=== PATIENT | female | born 1930 | race Caucasian/White ===

== ENCOUNTER 2018-08-27 14:01 | Inpatient (IN) | payer MEDICARE, BC ==
[~2018-08-27] VITALS: Ht 160 cm; Wt 62.2 kg
--- NOTE | 2018-08-27 14:19 | NUR ---
BIB BY [facility] FOR SOB/BILATERAL LEGS SWELLING (ACUTE ON CHRONIC) ON ARRIVAL REQUIRING 4L (HOME 2L), LEGS 4+, WET SOUNDING LUNGS AFEBRILE FSBS 90, HR 82 FAMILY REPORTS SHE HAS NOT BEEN TAKING HER LASIX
[2018-08-27] MEDS ORDERED: SODIUM CHLORIDE FLUSH 10ML SYR IVF ONE (15:00)
[2018-08-27 15:08] LABS: BASOPHILS # (AUTO) 0.11 x10^3/uL (0-0.1); BASOPHILS % (AUTO) 1 % (0-1); EOSINOPHILS # (AUTO) 0.19 x10^3/uL (0-0.4); EOSINOPHILS % (AUTO) 2 % (1-7); LYMPHOCYTES # (AUTO) 2.31 x10^3/uL (1-3.4); LYMPHOCYTES % (AUTO) 20 % (22-44); MD NO; MEAN CORPUSCULAR HEMOGLOBIN 28.5 pg (27.0-34.8); MEAN CORPUSCULAR HGB CONC 32.2 g/dL (32.4-35.8); MEAN CORPUSCULAR VOLUME 88.6 fL (80-100); MEAN PLATELET VOLUME 6.7 fL (7.4-10.4); MONOCYTES # (AUTO) 0.81 x10^3/uL (0.2-0.8); MONOCYTES % (AUTO) 7 % (2-9); NEUTROPHILS # (AUTO) 8.05 x10^3/uL (1.8-6.8); NEUTROPHILS % (AUTO) 70 % (42-75); PLATELET COUNT 484 x10^3/uL (130-400); RED BLOOD COUNT 4.42 x10^6/uL (3.82-5.3); RED CELL DISTRIBUTION WIDTH 15.4 % (9.6-15.2)
[2018-08-27 15:19] LABS: CALCIUM 9.3 mg/dL (8.5-10.1); CHLORIDE 106 mmol/L (98-107)
[2018-08-27 15:27] LABS: ALANINE AMINOTRANSFERASE 15 U/L (12-78); ALBUMIN 3.9 g/dL (3.4-5.0); ALKALINE PHOSPHATASE 99 U/L (45-117); ANION GAP 7 mmol/L (5-15); BILIRUBIN,TOTAL 0.5 mg/dL (0.2-1.0); TOTAL PROTEIN 6.9 g/dL (6.4-8.2); TROPONIN I < 0.015 ng/mL (0.000-0.045)
[2018-08-27] MEDS ORDERED: HYDR-3245 PO (15:33)
[2018-08-27] MEDS ORDERED: ISOS20TA58 PO (15:33)
[2018-08-27] MEDS ORDERED: POTA10TA31 PO (15:33)
[2018-08-27] MEDS ORDERED: LISI-170 PO (15:33)
[2018-08-27] MEDS ORDERED: ALBU18HF INH (15:33)
[2018-08-27] MEDS ORDERED: FURO20TA3 PO (15:33)
--- NOTE | 2018-08-27 15:47 | NUR ---
PT GIVEN BLANKET AND PILLOW FOR COMFORT. INFORMED PT WAITING ON LAB RESULTS AT THIS TIME.
--- NOTE | 2018-08-27 17:32 | NUR ---
REPORT TO SAHIL POWELL.
[2018-08-27 18:48] VITALS: BP 131/67
[2018-08-27 19:22] VITALS: BP 131/67
[2018-08-27] MEDS ORDERED: ALBUTEROL SULFATE 2.5 MG/3 ML ONE (21:55)
[2018-08-27] MEDS ORDERED: ACETAMINOPHEN 325 MG TABLET PO PRN (23:30)
[2018-08-27] MEDS ORDERED: ONDANSETRON ODT 4 MG PO PRN (23:30)
[2018-08-27] MEDS ORDERED: LIDODERM 5% PATCH TD PRN (23:30)
[2018-08-27] MEDS ORDERED: DOCUSATE 100 MG CAPSULE PO PRN (23:30)
[2018-08-27] MEDS ORDERED: TEMAZEPAM 15 MG CAPSULE PO PRN (23:30)
[2018-08-27] MEDS ORDERED: ENALAPRILAT 1.25 MG/ML, 2ML IVPush PRN (23:30)
[2018-08-28 01:37] VITALS: BP 130/63
[2018-08-28] MEDS: ALBUTEROL SULFATE 2.5 MG/3 ML NPPB SCH ×7 (01:45→21:43)
[2018-08-28] MEDS ORDERED: ALBUTEROL SULFATE 2.5 MG/3 ML ONE (01:50)
[2018-08-28 05:39] LABS: BASOPHILS # (AUTO) 0.09 x10^3/uL (0-0.1); BASOPHILS % (AUTO) 1 % (0-1); EOSINOPHILS # (AUTO) 0.24 x10^3/uL (0-0.4); EOSINOPHILS % (AUTO) 3 % (1-7); LYMPHOCYTES % (AUTO) 25 % (22-44); MD NO; MEAN CORPUSCULAR HEMOGLOBIN 28.5 pg (27.0-34.8); MEAN CORPUSCULAR HGB CONC 32.6 g/dL (32.4-35.8); MEAN CORPUSCULAR VOLUME 87.6 fL (80-100); MEAN PLATELET VOLUME 6.5 fL (7.4-10.4); MONOCYTES # (AUTO) 0.67 x10^3/uL (0.2-0.8); MONOCYTES % (AUTO) 8 % (2-9); NEUTROPHILS # (AUTO) 5.45 x10^3/uL (1.8-6.8); NEUTROPHILS % (AUTO) 64 % (42-75); PLATELET COUNT 460 x10^3/uL (130-400); RED BLOOD COUNT 4.01 x10^6/uL (3.82-5.3); RED CELL DISTRIBUTION WIDTH 15.7 % (9.6-15.2)
[2018-08-28 05:47] LABS: ANION GAP 7 mmol/L (5-15); CALCIUM 8.5 mg/dL (8.5-10.1); CHLORIDE 108 mmol/L (98-107); CREATININE 0.91 mg/dL (0.55-1.02)
[2018-08-28 08:22] VITALS: BP 126/63
[2018-08-28] MEDS: FUROSEMIDE 40 MG TABLET PO SCH (08:52)
[2018-08-28] MEDS: LISINOPRIL 20 MG TABLET PO SCH (08:52)
[2018-08-28] MEDS: HYDROcodone/APAP 10/325 MG TABLET PO PRN ×3 (08:52→21:51)
[2018-08-28] MEDS: ISOSORBIDE DINITRATE 30 MG TABLET PO SCH ×3 (08:52→20:48)
[2018-08-28] MEDS: ENOXAPARIN 40 MG/0.4 ML SQ SCH (08:53)
[2018-08-28] MEDS: POTASSIUM CHLORIDE 10 MEQ TABLET.ER PO SCH (08:53)
[2018-08-28 13:53] VITALS: BP 111/64
[2018-08-28 20:26] VITALS: BP 110/55
[2018-08-29 01:20] VITALS: BP 95/56
[2018-08-29] MEDS: ALBUTEROL SULFATE 2.5 MG/3 ML NPPB SCH ×6 (02:40→22:00)
[2018-08-29] MEDS: HYDROcodone/APAP 10/325 MG TABLET PO PRN ×3 (05:38→20:07)
[2018-08-29 06:44] VITALS: BP 111/62
[2018-08-29] MEDS: LISINOPRIL 20 MG TABLET PO SCH (09:01)
[2018-08-29] MEDS: FUROSEMIDE 40 MG TABLET PO SCH (09:01)
[2018-08-29] MEDS: POTASSIUM CHLORIDE 10 MEQ TABLET.ER PO SCH (09:01)
[2018-08-29] MEDS: ISOSORBIDE DINITRATE 30 MG TABLET PO SCH ×3 (09:01→20:07)
[2018-08-29] MEDS: ENOXAPARIN 40 MG/0.4 ML SQ SCH (09:02)
[2018-08-29 13:42] VITALS: BP 102/52
[2018-08-29 20:05] VITALS: BP 100/53
[2018-08-30 02:42] VITALS: BP 129/67
[2018-08-30] MEDS: HYDROcodone/APAP 10/325 MG TABLET PO PRN ×3 (03:26→18:35)
[2018-08-30] MEDS: ALBUTEROL SULFATE 2.5 MG/3 ML NPPB SCH ×5 (03:42→18:01)
[2018-08-30 07:28] VITALS: BP 138/71
[2018-08-30] MEDS: ENOXAPARIN 40 MG/0.4 ML SQ SCH (09:00)
[2018-08-30] MEDS: FUROSEMIDE 40 MG TABLET PO SCH (09:15)
[2018-08-30] MEDS: POTASSIUM CHLORIDE 10 MEQ TABLET.ER PO SCH (09:15)
[2018-08-30] MEDS: ISOSORBIDE DINITRATE 30 MG TABLET PO SCH ×2 (09:15→16:55)
[2018-08-30] MEDS: LISINOPRIL 20 MG TABLET PO SCH (09:16)
[2018-08-30 14:38] VITALS: BP 106/55
[2018-08-30] MEDS ORDERED: IPRA3AMP30 INH (16:36)
[2018-08-30] MEDS ORDERED: PRED5TAB PO (16:36)
== END 2018-08-30 18:58 | disposition home health service (06) | DRG 291 ==
LOC: ED 16:01 → EDIP 17:01 → 4EST 18:19
PROVIDERS: ADMIT Internal Medicine; ATTEND Internal Medicine
DX: I11.0 Hypertensive heart disease with heart failure (principal); J96.20 Acute and chronic respiratory failure, unspecified whether with hypoxia or hypercapnia; J44.1 Chronic obstructive pulmonary disease with (acute) exacerbation; I50.33 Acute on chronic diastolic (congestive) heart failure; I87.2 Venous insufficiency (chronic) (peripheral); M16.0 Bilateral primary osteoarthritis of hip; Z87.891 Personal history of nicotine dependence; Z99.81 Dependence on supplemental oxygen
CPT/HCPCS: 36415; 71045; 80048; 80053; 83605; 83880; 84484; 85025; 87040; 93005; 93306; 93970; 94640; 99285; G0378; J1650; J7613; J7512